=== PATIENT | male | born 1955 | race Caucasian/White ===

== ENCOUNTER 2018-12-15 14:54 | Emergency (ER) | payer OTHER ==
[2018-12-15 15:10] VITALS: BP 138/93; PULSE 60; TEMP 98.2
--- NOTE | 2018-12-15 15:10 | PDOC ---
Rapid Medical Evaluation Chief Complaint: Pain Time Seen by Provider: 12/15/18 15:04 Medical Evaluation: 12/15/18 15:07 I have performed a brief in-person evaluation of this patient. The patient presents with a chief complaint of: Pertinent physical exam findings: atraumatic swelling with no pain or redness to right elbow started this afternoon , States was more swollen but resolving . works a forklift/ twisting mechanism I have ordered the following: Xray right elbow The patient will proceed to the ED for further evaluation. Discharge Disposition - Diagnosis Elbow pain, right - Referrals - Patient Instructions - Post Discharge Activity
[2018-12-15] MEDS ORDERED: IBUPROFEN 400 MG TABLET (FP) PO ONE ×2 (16:44→16:45)
--- NOTE | 2018-12-15 16:51 | PDOC ---
History of Present Illness - General Chief Complaint: Pain Stated Complaint: RT ELBOW BOIL Time Seen by Provider: 12/15/18 15:04 History Source: Patient Exam Limitations: No Limitations (Right elbow pain since awakening this morning) Past History - Travel Traveled outside of the country in the last 30 days: No - Past Medical History Allergies/Adverse Reactions: Allergies Allergy/AdvReac Type Severity Reaction Status Date / Time No Known Allergies Allergy Verified 12/15/18 15:10 Home Medications: Ambulatory Orders Naproxen [EC-Naprosyn] 500 mg PO BID 15 Days #30 tablet 12/15/18 - Suicide/Smoking/Psychosocial Hx Smoking History: Never smoked Have you smoked in the past 12 months: No Information on smoking cessation initiated: No Hx Alcohol Use: No Drug/Substance Use Hx: No Review of Systems - Review of Systems Constitutional: No: Chills, Fever Musculoskeletal: Yes: Joint Pain, Joint Swelling (right elbow). No: Gout Neurological: No: Numbness, Tingling, Tremors, Weakness, Ataxia, Dizziness *Physical Exam - Vital Signs Last Vital Signs Temp Pulse Resp BP Pulse Ox 98.2 F 60 18 138/93 98 12/15/18 15:05 12/15/18 15:05 12/15/18 15:05 12/15/18 15:05 12/15/18 15:05 - Physical Exam General Appearance: Yes: Nourished Neck: positive: Supple Respiratory/Chest: positive: Lungs Clear, Normal Breath Sounds Cardiovascular: positive: Regular Rhythm, Regular Rate, S1, S2 Extremity: positive: Normal Capillary Refill, Normal Range of Motion, Swelling ( mild swelling in olecranon process, no warmth, no pain on rom) 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, Fully Oriented, Alert, Normal Mood/ Affect, Normal Response, Motor Strength 5/5 Medical Decision Making - Medical Decision Making 12/15/18 16:45 R elbow pain since this morning no trauma, f/c xray no fracture likely tendonitis nsaids ortho f/u *DC/Admit/Observation/Transfer Diagnosis at time of Disposition: Elbow pain, right - Discharge Dispostion Disposition: HOME Condition at time of disposition: Stable - Prescriptions Prescriptions: Naproxen [EC-Naprosyn] 500 mg PO BID 15 Days #30 tablet - Referrals Referrals: Rashad Lamb [Primary Care Provider] - Shakir Betancourt DO [Staff Physician] - - Patient Instructions Printed Discharge Instructions: DI for Elbow Pain Additional Instructions: Your xray was negative for acute fracture or dislocation your probably have tendonitis which is an inflammation in the elbow joints take medication as prescribed follow up with orthopedic clinic if pain persistent more than 2 weks return to the ER if worsening symptoms occurs. - Post Discharge Activity
== END 2018-12-15 17:02 | disposition home or self-care (01) ==
LOC: JERFT 14:54
DX: M25.521 Pain in right elbow (principal)
CPT/HCPCS: 73070-TC-RT-FY; 99281-25

== ENCOUNTER 2024-02-07 10:42 | Day surgery (SDC) | payer OTHER ==
[2024-02-04 15:35] VITALS: BMI 28.9
[2024-02-07 11:07] VITALS: RESP 16
[2024-02-07 13:01] VITALS: PULSE 57; TEMP 97.6
[2024-02-07 13:45] VITALS: BP 122/81
== END 2024-02-07 14:00 | disposition home or self-care (01) ==
LOC: FASU-ENDO 10:42
PROVIDERS: ATTEND Internal Medicine Gastroenterology
PROC: 0DBN8ZX Excision of Sigmoid Colon, Via Natural or Artificial Opening Endoscopic, Diagnostic (ICD-10-PCS; principal; 2024-02-07 12:32)
DX: Z12.11 Encounter for screening for malignant neoplasm of colon (principal); D12.5 Benign neoplasm of sigmoid colon; K57.30 Diverticulosis of large intestine without perforation or abscess without bleeding; Z86.010 Personal history of colon polyps; Z80.0 Family history of malignant neoplasm of digestive organs
CPT/HCPCS: 82962; 88305-TC